=== PATIENT | female | born 1970 | race Two or more races ===

== ENCOUNTER 2021-06-26 04:28 | Day surgery (SDC) | payer OTHER ==
[2021-06-22 17:27] VITALS: BMI 24.8
[2021-06-26] MEDS ORDERED: BUPIVACAINE HCL/PF 0.5% (5MG/ML) 10 ML VIAL ONE (08:28)
[2021-06-26] MEDS ORDERED: LIDOCAINE HCL 1%, 10 MG/ML (20ML VIAL) ONE (08:28)
[2021-06-26] MEDS ORDERED: ROPIVACAINE HCL 0.5% 30ML VIAL ONE (08:35)
[2021-06-26] MEDS ORDERED: MIDAZOLAM HCL 2 MG/2 ML SINGLE DOSE VIAL ONE ×2 (08:36)
[2021-06-26] MEDS ORDERED: PROPOFOL 20 ML ONE ×3 (09:14→10:37)
[2021-06-26] MEDS ORDERED: ceFAZolin SODIUM 1 GM VIAL IVPB ONE (09:45)
[2021-06-26] MEDS ORDERED: ONDANSETRON 4 MG/2 ML VIAL IVPUSH PRN (12:02)
[2021-06-26] MEDS ORDERED: oxyCODONE HCL 5 MG TABLET PO PRN ×2 (12:02)
[2021-06-26] MEDS ORDERED: LACTATED RINGERS SOLUTION 1,000 ML IV SCH (12:15)
[2021-06-26 12:34] VITALS: TEMP 97.3
[2021-06-26 13:03] VITALS: BP 110/60; PULSE 70
== END 2021-06-26 12:10 | disposition home or self-care (01) ==
LOC: JASU-SURG 04:28
PROVIDERS: ATTEND Orthopaedic Surgery
PROC: 0LB60ZZ Excision of Left Lower Arm and Wrist Tendon, Open Approach (ICD-10-PCS; 2021-06-26)
PROC: 0PTN0ZZ Resection of Left Carpal, Open Approach (ICD-10-PCS; 2021-06-26)
PROC: 0LU607Z Supplement Left Lower Arm and Wrist Tendon with Autologous Tissue Substitute, Open Approach (ICD-10-PCS; principal; 2021-06-26 09:00)
DX: M19.032 Primary osteoarthritis, left wrist (principal); E11.9 Type 2 diabetes mellitus without complications
CPT/HCPCS: 76000-TC-FY; 82962